=== PATIENT | female | born 1985 | race Caucasian/White ===

== ENCOUNTER 2018-01-08 23:40 | Emergency (ER) | payer OTHER ==
[2018-01-08 23:53] VITALS: BP 135/85
[2018-01-09] MEDS ORDERED: IBUPROFEN 600 MG TABLET PO STA (00:32)
[2018-01-09] MEDS ORDERED: DEXAMETHASONE 10 MG/ML VIAL PO STA (00:32)
--- NOTE | 2018-01-09 00:35 | ED Physician Documentation ---
PD HPI URI - Stated complaint Stated Complaint: FEVER,SORE THROAT - Chief complaint Chief Complaint: General - History obtained from History obtained from: Patient - History of Present Illness Timing - onset: Yesterday Timing details: Gradual onset, Still present Associated symptoms: Fever, Sore throat Contributing factors: Sick contact Similar symptoms before: Has not had sx before Recently seen: Not recently seen - Additional information Additional information: Patient is a 32 year old female with no significant past medical history who is presenting to the emergency department for fever and sore throat. 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 Review of Systems Constitutional: reports: Fever. denies: Chills Eyes: denies: Discharge, Irritation Ears: denies: Ear pain Nose: reports: Rhinorrhea / runny nose. 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 : None HEENT: None Psych: None Musculoskeletal: None Derm: None - Past Surgical History Past Surgical History: Yes Ortho: Other - Present Medications Home Medications: Ambulatory Orders Medication Instructions Recorded Confirmed Zlb707/FA/Omega3/Dha/Fish Oil 1 tab PO DAILY 01/24/16 01/24/16 [ Gummies] - Allergies Allergies/Adverse Reactions: Allergies Allergy/AdvReac Type Severity Reaction Status Date / Time No Known Drug Allergies Allergy Verified 05/07/15 19:29 - Social History Does the pt smoke?: No Smoking Status: Never smoker Does the pt drink ETOH?: No Does the pt have substance abuse?: No - Immunizations Immunizations are current?: Yes - POLST Patient has POLST: No PD ED PE NORMAL - Vitals Vital signs reviewed: Yes - General General: Alert and oriented X 3, No acute distress - HEENT HEENT: Atraumatic, PERRL - Neck Neck: Supple, no meningeal sign - Cardiac Cardiac: RRR, No murmur - Respiratory Respiratory: No respiratory distress - Abdomen Abdomen: Soft, Non tender, Non distended - Derm Derm: Normal color, Warm and dry, No rash - Extremities Extremities: No deformity - Neuro Neuro: Alert and oriented X 3, Normal speech Eye Opening: Spontaneous Motor: Obeys Commands Verbal: Oriented GCS Score: 15 - Psych Psych: Normal mood PD ED PE EXPANDED - HEENT HEENT: Nasal congestion, Pharyngeal erythema, Swollen tonsils, Tonsillar exudate Results - Vitals Vitals: Vital Signs - 24 hr 01/08/18 01/08/18 23:50 23:53 Temperature 36.2 C L Heart Rate 87 Respiratory 20 Rate Blood Pressure 135/85 H O2 Saturation 97 Oxygen O2 Source Room air - Labs Labs: Laboratory Tests 01/09/18 00:15 Group A Strep Rapid POSITIVE H PD MEDICAL DECISION MAKING - ED course Complexity details: reviewed old records, reviewed results, re-evaluated patient , considered differential, d/w patient ED course: Patient was seen and examined at bedside. Patient was treated with decadron and ibuprofen. rapid strep was performed and was positive. patient was treated with bicillin IM. Patient was able to tolerate PO without difficulty. Patient required no further work up and was stable for discharge with outpatient follow up. Departure - Departure Disposition: 01 Home, Self Care Clinical Impression: Strep throat Condition: Good Instructions: ED Strep Pharyngitis Conf Follow-Up: Shira Diaz ARNP [Primary Care Provider] - As Needed Comments: Your symptoms today are being caused by strep throat. You were treated with bicillin today so no more antibiotics will be needed. You can take motrin or tylenol as needed for pain. You should follow up with your doctor if your symptoms persist next week. You should monitor your daughter for signs of strep throat as well. Discharge Date/Time: 01/09/18 01:24
[2018-01-09] MEDS ORDERED: CHERRY SYRUP 10 ML UDC PO ONE (00:44)
[2018-01-09] MEDS ORDERED: PENICILLIN G BENZATHINE 600,000 UNIT/ML SYRINGE IM STA (00:56)
== END 2018-01-09 01:24 | disposition home or self-care (01) ==
LOC: ED 23:40
DX: J02.0 Streptococcal pharyngitis (principal)
CPT/HCPCS: 87430; 96372; 99283; A9270

== ENCOUNTER 2020-09-13 10:27 | Day surgery (SDC) | payer OTHER ==
[~2020-09-13 10:27] MED LIST: ceFAZolin 3 GM in SODIUM CHLORIDE 0.9% 100ML 100 ML IV ONE
[2020-09-13] MEDS ORDERED: LACTATED RINGERS 1,000 ML IV ONE ×2 (10:36→16:20)
[2020-09-13] MEDS ORDERED: METOCLOPRAMIDE 10 MG/2 ML VIAL IVP PRN (10:46)
[2020-09-13] MEDS ORDERED: HYDROmorphone 0.5 MG/0.5 ML SYRINGE IVP PRN (10:46)
[2020-09-13] MEDS ORDERED: ATROPINE ABBOJECT 1 MG/10 ML SYRINGE IVP PRN (10:46)
[2020-09-13] MEDS ORDERED: fentaNYL 100 MCG/2 ML VIAL IVP PRN (10:46)
[2020-09-13] MEDS ORDERED: ONDANSETRON 4 MG/2 ML VIAL IVP PRN ×2 (10:46→16:06)
[2020-09-13] MEDS ORDERED: ePHEDrine 50 MG/ML VIAL IVP PRN (10:46)
[2020-09-13] MEDS ORDERED: MORPHINE 2 MG/ML CARPUJECT IVP PRN (10:46)
[2020-09-13] MEDS ORDERED: NALOXONE 0.4 MG/ML VIAL IVP PRN (10:46)
--- NOTE | 2020-09-13 10:46 | ANESTHESIA ---
Pre-Anesthesia VS, & Labs - Diagnosis left knee meniscus tear, loose body - Procedure left knee arthroscopy, loose body removal Height: 5 ft 8 in Weight (kg): 149.69 kg Body Mass Index: 50.1 BMI Classification: Morbidly Obese - NPO >8 hours - Is Patient ?: No Home Medications and Allergies Pnv No.103/Folic/Om3s/Fish Oil [ Gummies] 1 tab PO DAILY 01/24/16 Allergies/Adverse Reactions: Allergies Allergy/AdvReac Type Severity Reaction Status Date / Time No Known Drug Allergies Allergy Verified 09/09/20 13:48 Anes History & Medical History - Anesthetic History Anesthesia Complications: reports: No previous complications (On first knee surgery(age 15), in PACU she did have some tachycardia rate 140s did require some labetalol in PACU) Family history of Anesthesia Complications: Denies Family history of Malignant Hyperthermia: Denies - Medical History Cardiovascular: reports: None Pulmonary: reports: None Gastrointestinal: reports: None Urinary: reports: None Musculoskeletal: reports: Other Endocrine/Autoimmune: reports: None Blood Disorders: reports: None Skin: reports: None Smoking Status: Never smoker - Surgical History Orthopedic: Arthroscopic surgery Exam General: Alert, Oriented x3, Cooperative, No acute distress Dental: WNL Mouth Openin Fingerbreadth Neck Mobility: Normal Mallampati classification: I Respiratory: Lungs clear, Normal breath sounds, No respiratory distress, No accessory muscle use Cardiovascular: Regular rate, Normal S1, Normal S2, No murmurs Plan Anesthesia Type: General Consent for Procedure(s) Verified and Reviewed: Yes Code Status: Attempt Resuscitation ASA classification: 3-Severe systemic disease Is this case an emergency?: No
[2020-09-13] MEDS ORDERED: LACTATED RINGERS 1,000 ML IV SCH (11:00)
[2020-09-13] MEDS ORDERED: BUPIVACAINE 0.25% PF 30 ML VIAL ONE (11:03)
[2020-09-13] MEDS ORDERED: EPINEPHrine 1 MG/ML AMP ONE (11:03)
[2020-09-13 11:06] LABS: HCG UR QUAL NEGATIVE
[2020-09-13] MEDS ORDERED: PROPOFOL 200 MG/20 ML VIAL IVP ONE (12:45)
[2020-09-13] MEDS ORDERED: fentaNYL 100 MCG/2 ML VIAL IVP ONE (12:45)
[2020-09-13] MEDS ORDERED: LIDOCAINE-MPF 2% 5 ML VIAL IM ONE (12:45)
[2020-09-13] MEDS ORDERED: LABETALOL 5 MG/1 ML 20 ML MDV IV ONE (12:45)
[2020-09-13] MEDS ORDERED: HYDROmorphone 1 MG/ML CARPUJECT IVP ONE (12:45)
[2020-09-13] MEDS ORDERED: DEXAMETHASONE 4 MG/ML VIAL IVP ONE (12:45)
[2020-09-13] MEDS ORDERED: ONDANSETRON 4 MG/2 ML VIAL IVP ONE (12:45)
[2020-09-13] MEDS ORDERED: EPINEPHrine 1 MG/ML AMP IR ONE (13:50)
[2020-09-13] MEDS ORDERED: BUPIVACAINE 0.25% PF 30 ML VIAL SUBQ ONE ×2 (13:50)
[2020-09-13] MEDS ORDERED: oxyCODONE 5 MG TABLET PO PRN (16:06)
[2020-09-13] MEDS ORDERED: KETOROLAC 15 MG/ML VIAL ONE (16:14)
--- NOTE | 2020-09-13 16:33 | ANESTHESIA POST OP EVALUATION ---
Anesthesia Post Eval - Post Anesthesia Eval Vitals: Last Vital Signs Temp 36.3 C L 09/13/20 16:21 Pulse 83 09/13/20 16:21 Resp 12 09/13/20 16:21 BP 121/60 09/13/20 16:21 Pulse Ox 95 09/13/20 16:21 CV Function Including HR & BP: positive: Stable Pain Control: positive: Satisfactory Nausea & Vomiting: positive: Negative Mental Status: positive: Baseline Respiratory Status: Airway Patent Hydration Status: Satisfactory Anesthesia Complications: positive: None
[2020-09-13] MEDS ORDERED: oxyCODONE 5 MG TABLET ONE (16:42)
--- NOTE | 2020-09-13 16:43 | OPERATIVE REPORT ---
Operative Report - Other Other Information/Narrative: Date of Procedure: 13 September 2020 Planned Procedure: Left knee arthroscopy, medial and lateral meniscal debridement, possible loose body removal Pre-op diagnosis: Left knee medial lateral degenerative meniscal tears, possible loose body underneath anterior horn lateral meniscus Procedure performed: Left knee arthroscopy, partial synovectomy, lateral meniscal debridement, trochlear and patellar chondroplasty Post-op diagnosis: Left knee synovitis, chondrocalcinosis, lateral meniscal degenerative tear, trochlear and patellar chondromalacia Primary Surgeon: KASIA KWONG Secondary Surgeon: Eliza Anesthesia: General EBL: Approximately 50 ml Tourniquet: Approximately 105 minutes, left thigh started at 250mmHg and raised to 300mmHg due to bleeding. Arthroscopic findings left knee knee: 1. Patella: Central chondromalacia with crabmeat changes 2. Trochlea: Full-thickness chondral defect with undermined and unstable chondral flaps at the periphery. These were debrided with a combination of curettes, meniscal biters and the arthroscopic sucker shaver to a stable rim. Following debridement, the lesion was approximately 20 mm proximal to distal and approximately 15 mm medial to lateral. The lateral border of this lesion was confluent with a second chondral defect on the anterior portion of the lateral femoral condyle. This measured approximately 10 mm proximal to distal by 7 mm medial to lateral 3. Medial Compartment: Diffuse calcification of the femoral cartilage and medial meniscus. The medial meniscal root appeared intact. Probing of the meniscus did not reveal any tears either superiorly or inferiorly. The inner edge of the meniscus had a little bit of fraying that was debrided using the sucker shaver. The weightbearing surface of the femoral condyle appeared intact and without defect through the 90 degree arc of motion. There was diffuse synovitis predominantly anteriorly but also throughout the remainder of the compartment 4. Lateral Compartment: Diffuse calcification lateral meniscus. The lateral meniscal root was intact. Probing of the meniscus did not reveal any midsubstance tears superiorly or inferiorly. The inner edge of the meniscus was more significantly frayed than the medial side and was debrided back to a stable rim using meniscal biters and then smoothed using the arthroscopic sucker shaver. Preoperative imaging suggested an approximately 7 to 8 mm potential loose body underneath the anterior horn of the lateral meniscus. This area was viewed by placing the scope through the medial portal, and switching to a 70 degree scope. No loose body was visualized. Therefore a second lateral portal was made slightly inferior to the anterolateral portal using needle localization. The intent was to pass a needle underneath the anterior horn of the lateral meniscus, once this was accomplished a small 5 mm portal was made with an 11 blade and a switching stick was passed in similar fashion, underneath the anterior horn of the lateral meniscus. This was maneuvered and windshield wiper fashion to try and dislodge any loose bodies residing underneath the anterior horn of the lateral meniscus. Some small pieces of calcification were released, but no acosta loose body was identified. 5. ACL and PCL: The anterior fat pad and ligamentum were all diffusely synovitic. This was debrided with repeated cycles of the sucker shaver followed by radiofrequency ablation for bleeding control, eventually clearing space in the front of the knee and removing the inflamed synovial tissue. The PCL and ACL were stable to probing. 6. Posterior lateral and posterior medial compartments: A switching stick was passed between the ACL and lateral femoral condyle under direct visualization. The scope trocar was then inserted over the switching stick in a modified Gillquist maneuver. The switching stick was removed and the camera placed providing visualization of the posterior lateral compartment. There is extensive synovitis, but no loose body was appreciated. This procedure was repeated on the medial side. 7. Synovium: Diffuse synovitis of the knee, with hypertrophic fronds of injected synovial tissue across most of the anterior knee soft tissue structures, including the anterior capsule, ligamentum mucosum, and infrapatellar fat pad. There is also diffuse synovitis in the suprapatellar pouch, along the medial and lateral gutters and in the posterior compartments. COMPLICATIONS: none IMPLANTS: None Indications for surgery: 35-year-old female who had onset of left knee pain in June 2020. This may have been preceded by low-grade trauma approximately 1 to 2 weeks prior. She ex perienced the initial pain, she had difficulty weightbearing and was seen at the local ER, with thoughts that maybe her symptoms were related to a meniscal tear. Radiographs obtained at that time did not demonstrate a fracture. Over the subsequent weeks, pain gradually improved and she obtained an MRI of the knee. In mid-July, her knee pain increased and she was unable to move the knee, she presented to the ED and was prescribed muscle relaxants to try and unlock the joint, subsequently her pain is improved. She has had waxing and waning of her symptoms. She does have daily pain, with occasional severe spikes. Radiographs and MRI were suggestive calcification of the chondral surfaces and menisci as well as possible medial and lateral meniscal tearing, predominantly of the posterior horns. There appeared to be a small 8 mm loose body underneath the anterior horn of the lateral meniscus. Her intermittent symptoms seemed potentially consistent with a migratory loose body. We discussed treatment option closed in clinic to include nonoperative treatment, with physical therapy, potential injections, and oral nonsteroidal medications versus operative treatment consisting of left knee arthroscopy with possible meniscal debridement and potential loose body removal. The risks, benefits, and alternatives were discussed. Risks include pain, bleeding, infection, damage to nearby structures and cartilage, lack of symptom relief, need for further surgery, DVT, PE, stroke, and . Written consent was obtained. Procedure Details: The patient was met in the pre-operative hold area. I confirmed the patient identity, procedure, and surgical site, as well as confirming that the consent had been completed. The patient verified the surgical site as the left knee, and the left knee was initialed per facility protocol. The patient then met with anesthesia and was brought back to the operating room. The patient was placed supine on the operating table. A general anesthetic was administered and LMA was placed. A well-padded tourniquet was placed on the left thigh. The left lower extremity was then prepped and draped in the usual sterile fashion. A surgical timeout was then performed. The correct patient, the correct procedure, and the correct surgical site were confirmed by everyone in the room. Perioperative antibiotics had been administered. After surgical timeout and administration of antibiotics the Escmarch was used to exsanguinate the left lower extremity and the tourniquet was raised. An 11 blade scalpel was used to make an anterolateral arthroscopic portal. The arthroscope was introduced into the knee. The anteromedial portal was made using needle localization and a diagnostic arthroscopy was performed with the above- stated findings. The arthroscope and radiofrequency ablation wand were used to conduct a partial synovectomy to improve visualization. Medial meniscus was trimmed at the inner border using the arthroscopic sucker shaver, and the lateral meniscus at the inner rim was formally debrided using a combination of meniscal biters and the sucker shaver. Following debridement, there is a stable rim of meniscal tissue. An accessory anterolateral portal was made inferior to the standard anterolateral portal using needle localization, and then a switching stick was placed through this portal underneath the anterior horn of the lateral meniscus to try to dislodge any loose bodies that may have been present. A 70 degree scope through the medial portal was used to improve the viewing angle. No loose body was found in that location. We then examined the posterior lateral and posterior medial compartments. Finally we turned our attention to the patellofemoral articulation. A chondroplasty of the trochlea and patella was performed using a combination of meniscal biters, ring curettes and the sucker shaver. The cartilage was debrided to a stable rim. The arthroscopic instruments were then removed from the knee, and the fluid was drained. The lateral portal which was slightly larger, was closed deep using buried 2-0 Monocryl, and then the lateral portal and remaining portals were closed with 3-0 Monocryl. Approximately 22 mL of 0.25% Marcaine with epinephrine was injected into the periarticular soft tissues. The incisions were dressed with Xeroform gauze, cotton gauze, an ABD and webril. Followed by a gently compressive Peter wrap. The tourniquet was lowered. The surgical drapes were removed. The patient was awoken from anesthesia, extubated, transferred to the hospital bed, and taken to the PACU for recovery in good condition. Postoperative plan: 1. Discharge home from the same day surgery facility once the patient has met discharge criteria. 2. Advance weightbearing as tolerated, range of motion as tolerated, and wean from crutches as tolerated. 3. Return to clinic in 1-2 weeks 4. Allow advancement of activities as tolerated with full clearance for all activities anticipated in 6-8 weeks postoperatively.
[2020-09-13 16:55] VITALS: BP 143/74
[2020-09-13] MEDS ORDERED: KETOROLAC 30 MG/ML VIAL IVP SCH (17:00)
== END 2020-09-13 10:28 | disposition home or self-care (01) ==
LOC: SDS 10:27
PROVIDERS: ATTEND Orthopaedic Surgery
DX: M23.252 Derangement of posterior horn of lateral meniscus due to old tear or injury, left knee (principal); M23.222 Derangement of posterior horn of medial meniscus due to old tear or injury, left knee; M65.862 Other synovitis and tenosynovitis, left lower leg; M22.42 Chondromalacia patellae, left knee; M11.262 Other chondrocalcinosis, left knee; R00.0 Tachycardia, unspecified; E66.01 Morbid (severe) obesity due to excess calories; Z68.43 Body mass index [BMI] 50.0-59.9, adult
CPT/HCPCS: 81025

== ENCOUNTER 2021-04-10 10:00 | Emergency (ER) | payer OTHER ==
--- OUTSIDE RECORDS SUMMARY | 2021-04-10 10:03 | EXTERNAL MEDICAL SUMMARY RPT | Continuity of Care Document ---
:1985 Demographics Phone Unavailable Preferred Language Lithuanian Marital Status Unknown Moravian Affiliation Unknown Race Unknown Ethnic Group Unknown Author Organization [place] Address [address] [place] [address] Phone Care Team Providers Name Role Phone Kristopher Unavailable Unavailable Allergies Encounters Medications Problems date description facility [id number] Pain in left knee [facility] Procedures date description facility [id number] [facility] [id number] [facility] Results Vital Signs date measurement value source [id number] weight_standard 158.76 lb [id number] weight_metric 72.01 kg [id number] temperature_standard 98.7 F [id number] temperature_metric 37.06 C [id number] respiration_rate 16 /min [id number] heart_rate 69 /min [id number] BP_systolic 146 mm[Hg] [id number] BP_diastolic 81 mm[Hg]
[2021-04-10] MEDS ORDERED: ACETAMINOPHEN 325 MG TABLET PO STA (10:05)
[2021-04-10 10:10] VITALS: BP 138/73
--- NOTE | 2021-04-10 10:35 | XRAY Report ---
PROCEDURE: Knee 2 View RT INDICATIONS: knee p TECHNIQUE: 2 views of the right knee(s) were acquired. COMPARISON: None. FINDINGS: Bones: No fractures or dislocations. Mild degenerative change. No suspicious bony lesions. Soft tissues: No joint effusion. No suspicious soft tissue calcifications. IMPRESSION: Mild degenerative change. No evidence of acute bony abnormality of the right knee. Reviewed by: Jonathon Nicole MD on 04/10/2021 10:33 AM PDT Approved by: Jonathon Nicole MD on 04/10/2021 10:33 AM PDT Station ID: [id number]
--- OUTSIDE RECORDS SUMMARY | 2021-04-10 10:42 | EXTERNAL MEDICAL SUMMARY RPT | Continuity of Care Document ---
:1985 Demographics Phone Unavailable Preferred Language Egyptian Marital Status Unknown Gnosticism Affiliation Unknown Race Unknown Ethnic Group Unknown Author Organization [place] Address [address] [place] [address] Phone Care Team Providers Name Role Phone Kristopher Unavailable Unavailable Allergies Encounters Medications Problems date description facility [id number] Pain in left knee [facility] Procedures date description facility [id number] [facility] [id number] [facility] Results Vital Signs date measurement value source [id number] weight_standard 158.76 lb [id number] weight_metric 72.01 kg [id number] temperature_standard 98.7 F [id number] temperature_metric 37.06 C [id number] respiration_rate 16 /min 05641522 heart_rate 69 /min [id number] BP_systolic 146 mm[Hg] [id number] BP_diastolic 81 mm[Hg]
--- NOTE | 2021-04-10 10:59 | ED Physician Documentation ---
History of Present Illness - Stated complaint Stated Complaint: R KNEE PX - Chief complaint Chief Complaint: Ext Problem - History obtained from History obtained from: Patient - Additonal information Additional information: 35-year-old woman with past medical history of degenerative joint disease left knee replacement, presents with right knee pain gradual in onset since Wednesday, progressively worsening, Localized to the knee, nonradiating, worse with range of motion, associated with mild swelling. Patient has been using crutches since Wednesday. She does state that she missed stepped into a hole on Wednesday but was able to bear weight immediately afterward and was not having pain at the time. On Wednesday her knee buckled and she has had progressive pain since that time. Denies weakness, numbness, other symptoms. 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 : None HEENT: None Psych: None Musculoskeletal: Other Derm: None - Past Surgical History Past Surgical History: Yes Ortho: Arthroscopic surgery - Present Medications Home Medications: Ambulatory Orders Medication Instructions Recorded Confirmed Etonogestrel [Nexplanon] 68 mg SQ DAILY 09/13/20 09/13/20 - Allergies Allergies/Adverse Reactions: Allergies Allergy/AdvReac Type Severity Reaction Status Date / Time No Known Drug Allergies Allergy Verified 04/10/21 10:10 - Social History Does the pt smoke?: No Smoking Status: Never smoker Does the pt drink ETOH?: No Does the pt have substance abuse?: No - Immunizations Immunizations are current?: Yes - POLST Patient has POLST: No PD ED PE NORMAL - Vitals Vital signs reviewed: Yes - General General: Alert and oriented X 3, No acute distress, Well developed/nourished - HEENT HEENT: Atraumatic, PERRL, EOMI - Neck Neck: Supple, no meningeal sign - Derm Derm: Normal color, Warm and dry - Extremities Extremities: No deformity, Other (Discomfort with range of motion of the right knee. 2+ bilateral DP and PT pulses. Normal sensation and movement. Nontender with valgus and varus stress. Negative anterior drawer and Ally test.) Results - Vitals Vitals: Vital Signs - 24 hr 04/10/21 10:05 Temperature 36.7 C Heart Rate 82 Respiratory 18 Rate Blood Pressure 138/73 H O2 Saturation 100 Oxygen O2 Source Room air PD MEDICAL DECISION MAKING - ED course ED course: 35-year-old woman presents with gradual onset knee pain without apparent injury on x-ray. Conservative measures discussed and patient was placed in a knee immobilizer and will continue with crutches until her orthopedics appointment on Wednesday. Return precautions given. Departure - Departure Disposition: Home, Self Care Clinical Impression: Knee pain Condition: Good Instructions: ED RICE Comments: You were seen in the emergency department for knee pain. Your x-ray did not show any breaks in the bone or any fluid buildup, but an MRI will be able to tell better if you have ligament or tendon injury. You do have degenerative joint disease on x-ray. Please follow-up with your orthopedist this Wednesday for further evaluation and continue with the conservative measures that we discussed. Use crutches and knee immobilizer as needed until that time. Return the emergency department if you develop any new or worsening symptoms or have other concerns.
== END 2021-04-10 11:47 | disposition home or self-care (01) ==
LOC: ED 10:00
DX: M25.561 Pain in right knee (principal); M17.11 Unilateral primary osteoarthritis, right knee; Z96.652 Presence of left artificial knee joint
CPT/HCPCS: 73560; 99282; 99283; A9270

== ENCOUNTER 2021-06-14 22:06 | Emergency (ER) | payer OTHER ==
[2021-06-14 22:14] VITALS: BP 148/74
[2021-06-14] MEDS ORDERED: GENTAMICIN 0.3% OPHTH DROPS LEFTEYE STA (22:56)
--- NOTE | 2021-06-14 22:57 | ED Physician Documentation ---
History of Present Illness - Stated complaint Stated Complaint: LT EYE PX - Chief complaint Chief Complaint: Heent - History obtained from History obtained from: Patient - Additonal information Additional information: 35-year-old woman, noncontact lens wearer, presents with left eye irritation since 4 AM, progressively worsening since she is having pain in the eye. Denies discharge or itching. Does have associated redness. Review of Systems Constitutional: denies: Fever, Chills Eyes: reports: Irritation. 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 : None HEENT: None Psych: None Musculoskeletal: Other Derm: None - Past Surgical History Past Surgical History: Yes Ortho: Arthroscopic surgery - Present Medications Home Medications: Ambulatory Orders Medication Instructions Recorded Confirmed Etonogestrel [Nexplanon] 68 mg SQ DAILY 09/13/20 06/14/21 - Allergies Allergies/Adverse Reactions: Allergies Allergy/AdvReac Type Severity Reaction Status Date / Time No Known Drug Allergies Allergy Verified 04/10/21 10:10 - Social History Does the pt smoke?: No Smoking Status: Never smoker Does the pt drink ETOH?: No Does the pt have substance abuse?: No - Immunizations Immunizations are current?: Yes - POLST Patient has POLST: No PD ED PE NORMAL - Vitals Vital signs reviewed: Yes - General General: Alert and oriented X 3, No acute distress, Well developed/nourished - HEENT HEENT: Atraumatic, PERRL, EOMI, Other (Fluorescein stain with increased uptake in the left lower quadrant of the cornea covering a point 5 mm circular area. No foreign body on the cornea or on eversion of the eyelids) Results - Vitals Vitals: Vital Signs - 24 hr 06/14/21 22:12 Temperature 36.9 C Heart Rate 88 Respiratory 19 Rate Blood Pressure 148/74 H O2 Saturation 98 Oxygen O2 Source Room air PD MEDICAL DECISION MAKING - ED course ED course: 35-year-old woman presents with corneal abrasion. Antibiotic eyedrops prescribed. Return precautions given. Patient will follow up with the primary doctor for referral to ophthalmology. Departure - Departure Disposition: 01 Home, Self Care Clinical Impression: Corneal abrasion Condition: Good Instructions: ED Eye Injury Corneal Abrasion Comments: You are seen in the emergency department for corneal abrasion, scratch on the eye. Make sure that you take your antibiotic eyedrops as prescribed every 4 hours until complete with the bottle. Return to the emergency department if you have any new or worsening symptoms or other concerns. Follow-up with your primary doctor for referral to ophthalmology.
== END 2021-06-14 23:03 | disposition home or self-care (01) ==
LOC: ED 22:06
DX: S05.02XA Injury of conjunctiva and corneal abrasion without foreign body, left eye, initial encounter (principal); X58.XXXA Exposure to other specified factors, initial encounter
CPT/HCPCS: 99282; 99283; A9270